=== PATIENT | male | born 1955 | race Caucasian/White ===

== ENCOUNTER 2021-08-02 00:49 | Day surgery (SDC) | payer MEDICARE, SELFPAY ==
[2021-07-23 10:05] VITALS: BMI 23.1
--- NOTE | 2021-08-01 16:11 | WPDANESEPP ---
Anes - Eval Pre Procedure Procedure: Operation Date: 08/02/21 11:00 Proposed Procedures p Colonoscopy - Jovani Atkins MD Date/Time: 08/01/21 16:11 Pre Op Diagnosis: positive FIT test Patient Data Age: 66 Gender: M Height: 1.78 m Weight: 73 kg Allergies Allergy/AdvReac Type Severity Reaction Status Date / Time No Known Allergies Allergy Verified 07/23/21 10:03 Home Medications Medication Instructions Recorded Confirmed Type No Home Medications 06/28/20 06/28/20 History Patient hx anesthesia problems: none Family hx anesthesia problems: none Results Review: All pre-operative results and documents have been reviewed as part of the pre-operative evaluation. FORMERLY [facility] Past Medical History Medical History Bronchitis Second-hand smoke exposure - both parents Chemical/exhaust exposures, welding. Colon cancer screening Encounter for general adult medical examination without abnormal findings Surgical History Surgical History (Updated 08/01/21 @ 16:11 by Laquita Simmons CRNA) History of tonsillectomy Family History Family History Other Family history of arthritis Family history of heart disease in male family member before age 55 Social History Social History Smoking status: Never smoker Alcohol intake: never Substance use: never Substance use type: does not use Living arrangements: with family Spiritual care concerns: No Exam Day of Procedure 08/01/21 16:11
[2021-08-02] MEDS: LACTATED RINGERS 1,000 ML 150 ML IV CONT (09:41)
[2021-08-02 09:43] VITALS: BP 114/74; PULSE 84; RESP 20; TEMP 36.3; O2SAT 100
--- NOTE | 2021-08-02 09:45 | WPDGICN ---
Assessment and Plan Assessment and plan (1) Colon cancer screening: Code(s): Z12.11 - Encounter for screening for malignant neoplasm of colon Status: Acute Assessment and Plan: Patient presents for neoplasia screening colonoscopy. Further recommendations will be given after endoscopy. (2) Occult blood in stools: Code(s): R19.5 - Other fecal abnormalities Status: Acute Assessment and Plan: Patient had positive FIT test. Plan is to for colonoscopy for screening purposes also to look for source of occult blood in stool. GI Consult Note Consult date/time: 08/02/21 09:45 HPI: Abdi Ashraf is a 66 year old male Presents for screening colonoscopy. Patient's current weight appetite bowel movements are normal. He denies abdominal pain. He has had no bleeding. Family history noncontributory. He reports recently having a positive stool for occult blood. Presents today for neoplasia screening. Review of Systems Review of Systems: All systems reviewed & are unremarkable except as noted in HPI and below PMFSH Past Medical History Medical History Bronchitis Second-hand smoke exposure - both parents Chemical/exhaust exposures, welding. Colon cancer screening Encounter for general adult medical examination without abnormal findings Surgical History Surgical History (Updated 08/01/21 @ 16:11 by Laquita Simmons CRNA) History of tonsillectomy Family History Family History Other Family history of arthritis Family history of heart disease in male family member before age 55 Social History Social History Smoking status: Never smoker Alcohol intake: never Substance use: never Substance use type: does not use Living arrangements: with family Spiritual care concerns: No Meds Home Medications and Allergies Home Medications Medication Instructions Recorded Confirmed Type No Home Medications 06/28/20 08/02/21 History Allergies Allergy/AdvReac Type Severity Reaction Status Date / Time No Known Allergies Allergy Verified 08/02/21 09:42 Vital Signs Vital Signs - 24 hr 08/02/21 09:43 Temperature 97.4 F L Pulse Rate 84 Respiratory Rate 20 Blood Pressure 114/74 Pulse Oximetry 100 Exam Narrative: Physical exam reveals patient to be alert. Vital signs stable. HEENT exam is unremarkable. Patient is anicteric. Lungs are clear to auscultation and percussion. Heart is without murmur or extra sounds. Abdominal exam bowel sounds are present soft nontender without hepatosplenomegaly. Digital external rectal exam is normal.
--- NOTE | 2021-08-02 10:00 | WPDANESEFPP ---
Anes - Eval Final PreProcedure Day of Procedure 08/02/21 10:00 Patient weight: normal Heart: regular rate and rhythm Lungs: clear to auscultation Airway: Mallampati scale class II Neurological: alert and oriented Last oral intake: >/= 8 hours ASA classification: II Emergent: no Anesthetic plan: proceed Anesthesia type and monitoring: general GIVS and standard monitoring Results Review: All pre-operative results and documents have been reviewed as part of the pre-operative evaluation. Informed Consent: The patient's anesthetic plan and its attendant risks and benefits were discussed with the patient/family/POA. Questions were solicited and answers provided to the satisfaction of the patient/family/POA.
[2021-08-02 10:31] VITALS: BP 91/59; PULSE 99; RESP 19; O2SAT 96
[2021-08-02 10:41] VITALS: BP 105/67; PULSE 81; RESP 21; O2SAT 98
[2021-08-02 10:51] VITALS: BP 109/76; PULSE 77; RESP 16; O2SAT 100
== END 2021-08-02 10:55 | disposition home or self-care (01) ==
PROVIDERS: PCP Family Medicine; Visit Provider Internal Medicine Gastroenterology
PROC: 0DJD8ZZ Inspection of Lower Intestinal Tract, Via Natural or Artificial Opening Endoscopic (ICD-10-PCS; CPT 45378; principal; 2021-08-02 11:00)
DX: Z12.11 Encounter for screening for malignant neoplasm of colon (principal); R19.5 Other fecal abnormalities; K64.8 Other hemorrhoids
CPT/HCPCS: G0121; J2001; J2704; J7120

== ENCOUNTER 2021-10-14 14:42 | Outpatient (CLI) | payer MEDICARE, SELFPAY ==
--- NOTE | ~2021-10-14 | XR_ITS ---
EXAM: XR foot RT min 3V HISTORY: M79.671 - Pain in right foot HEEL PAIN X 1 WEEK COMPARISON: None available FINDINGS: Normal mineralization. No fracture or dislocation. No lytic or blastic lesion. Plantar ent hesopathy. Suggestion of cortical erosion adjacent to the plantar enthesophyte is likely summation ar tifact. Mild degenerative change at the first MTP joint. Degenerative changes in the fifth metatarsal head. No periosteal change. Soft tissues within normal limits. IMPRESSION: No acute fracture or dislocation. Plantar enthesopathy with adjacent cortical lucency that most likel y represents artifact, in the absence of a history of penetrating injury, overlying skin ulcer, or si gns/symptoms of infection. Reviewed, dictated and finalized at location K. IMPRESSION: No acute fracture or dislocation. Plantar enthesopathy with adjacent cortical l ucency that most likely represents artifact, in the absence of a history of pen etrating injury, overlying skin ulcer, or signs/symptoms of infection.
== END 2021-10-14 14:43 | disposition home or self-care (01) ==
PROVIDERS: PCP Family Medicine; Visit Provider Family Medicine
DX: M77.8 Other enthesopathies, not elsewhere classified (principal)
CPT/HCPCS: 73630

== ENCOUNTER 2021-12-19 20:37 | Emergency (ER) | payer MEDICARE, SELFPAY ==
--- NOTE | 2021-12-19 20:42 | ECG_ITS ---
Measurements Intervals Ronda Rate: 101 P: 31 IL: 140 QRS: 20 QRSD: 83 T: 37 QT: 335 QTc: 435 Interpretive Statements SINUS TACHYCARDIA ABNORMAL RHYTHM ECG NO PREVIOUS ECG AVAILABLE FOR COMPARISON Electronically Signed On 12-20-2021 16:42:43 CDT by Tonio Apple M.D.
--- NOTE | 2021-12-19 20:42 | ED.SYNCOPE ---
HPI - Syncope General Chief Complaint: Syncope Stated Complaint: SYNCOPAL EVENT Time Seen by Provider: 12/19/21 20:37 History of Present Illness HPI narrative: Pt had been outside off and on a lot today and was trying to keep hydrated by drinking water. Pt donated unit of blood this evening and went outside afterwatd and felt lightheaded and had brief syncopal episode. Pt denies CP or palpitations around event. Pt denies TUTTLE. Pt was hypotensive on EMS arrival and now much better after 500ml bolus of IVF. Related Data Allergies Allergy/AdvReac Type Severity Reaction Status Date / Time No Known Allergies Allergy Verified 12/11/21 09:18 Review of Systems Review of Systems: All systems reviewed & are unremarkable except as noted in HPI and below PMFSH Past Medical History Medical History Hyperlipidemia Onychomycosis Surgical History Surgical History History of tonsillectomy Family History Family History Other Family history of arthritis Family history of heart disease in male family member before age 55 Social History Social History Smoking status: Never smoker Alcohol intake: never Substance use: never Substance use type: does not use Spiritual care concerns: No Exam Const: General: healthy appearing and no acute distress Nutritional Appearance: well nourished Orientation/consciousness: patient oriented x3 Limitations: no limitations HENMT: Head: normal to inspection Mouth: Yes Normal oral and palatal mucosa present Eyes: Conjunctivae: conjunctivae normal EOM: EOMs intact bilaterally Neck: Neck: normal visual inspection Chest: Chest palpation & inspection: normal inspection of the chest Resp: Effort & Inspection: normal respiratory effort Auscultation: clear to auscultation bilaterally Cardio: Rate: regular rate Rhythm: regular rhythm Skin: General skin exam: normal color Rashes: no rashes Neuro: General: patient oriented x3, moves all extremities, no meningeal signs and no focal motor deficits Cranial nerves: Yes Nystagmus not present Speech: normal speech Extrem: General: normal to inspection and no clubbing, cyanosis or edema Psych: Mental Status: mental status grossly normal Affect: normal affect Attitude: cooperative Course Vital Signs Vital signs: Vital Signs Temperature 96.9 F L 12/19/21 20:51 Pulse Rate 101 H 12/19/21 20:51 Respiratory Rate 23 H 12/19/21 20:51 Blood Pressure 95/53 L 12/19/21 20:51 Pulse Oximetry 95 12/19/21 20:51 Oxygen Delivery Room Air 12/19/21 20:51 Temperature 96.9 F L 12/19/21 20:51 Pulse Rate 103 H 12/19/21 22:19 Respiratory Rate 20 12/19/21 22:19 Blood Pressure 112/60 12/19/21 22:19 Pulse Oximetry 99 12/19/21 22:19 Oxygen Delivery Room Air 12/19/21 20:51 MDM - Syncope Lab Data Result diagrams: 12/19/21 21:28 12/19/21 21:28 Labs: Lab Results 12/19/21 12/19/21 Range/Units 21:28 21:28 WBC 8.0 (4.5-10.0) K/mm3 RBC 4.03 L (4.6-6.20) M/mm3 Hgb 10.5 L (14.0-18.0) g/dL Hct 33.9 L (42.0-52.0) % MCV 84.1 (80-100) fl MCH 26.1 (26-34) pg MCHC 31.0 L (32-36) g/dl RDW 15.9 H (11.5-14.5) % Plt Count 321 (150-375) k/mm3 MPV 10.4 (7.4-10.4) fl Immature Gran % (Auto) 0.4 (0-0.5) % Neut % (Auto) 73.6 H (45.5-73.1) % Lymph % (Auto) 14.2 L (18.3-44.2) % Josephine % (Auto) 7.9 (2.6-8.5) % Eos % (Auto) 3.2 (0-4.4) % Baso % (Auto) 0.7 (0.2-1.2) % Lymph # (Auto) 1.14 (0.9-3.2) K/mm3 Josephine # (Auto) 0.6 (0.1-0.6) K/mm3 Eos # (Auto) 0.3 (0-0.3) K/mm3 Baso # (Auto) 0.1 (0.0-0.1) K/mm3 Abs Immat Gran (auto) 0.03 (0.00-0.031) K/mm3 Absolute Neuts (auto) 5.9 (1.3-6.7) K/mm3 Absolute Nucl
[2021-12-19 20:51] VITALS: BP 95/53; PULSE 101; RESP 23; TEMP 36.1; O2SAT 95
[2021-12-19] MEDS: SODIUM CHLORIDE 0.9% IV 1,000 ML 999 ML IV CONT (21:32)
[2021-12-19 21:42] LABS: Basophils Absolute Auto 0.1 K/mm3 (0.0-0.1); Basophils Percent Auto 0.7 % (0.2-1.2); Eosinophils Absolute Auto 0.3 K/mm3 (0-0.3); Eosinophils Percent Auto 3.2 % (0-4.4); Hematocrit 33.9 % (42.0-52.0); Hemoglobin 10.5 g/dL (14.0-18.0); Immature Granulocyte Absolute 0.03 K/mm3 (0.00-0.031); Immature Granulocyte Percent A 0.4 % (0-0.5); Lymphocytes Absolute Auto 1.14 K/mm3 (0.9-3.2); Lymphocytes Percent Auto 14.2 % (18.3-44.2); Mean Corpuscular Hemoglobin 26.1 pg (26-34); Mean Corpuscular Volume 84.1 fl (80-100); Mean Platelet Volume 10.4 fl (7.4-10.4); Monocytes Absolute Auto 0.6 K/mm3 (0.1-0.6); Monocytes Percent Auto 7.9 % (2.6-8.5); Neutrophils Absolute Auto 5.9 K/mm3 (1.3-6.7); Neutrophils Percent Auto 73.6 % (45.5-73.1); Platelet Count Result 321 k/mm3 (150-375); Red Blood Count 4.03 M/mm3 (4.6-6.20); Red Cell Distribution Width 15.9 % (11.5-14.5)
[2021-12-19 21:52] LABS: Alanine Aminotransferase 30 U/L (6-50); Albumin Level 3.4 g/dL (3.5-5.1); Alkaline Phosphatase 108 U/L (38-126); Anion Gap 7 mmol/L (8-16); Aspartate Amino Transferase 27 U/L (17-59); Bilirubin,Total 0.1 mg/dL (0.2-1.3); Blood Urea Nitrogen 24 mg/dL (9-20); Calcium 8.3 mg/dL (8.4-10.2); Carbon Dioxide 22 mmol/L (22-30); Chloride 108 mmol/L (98-107); Estimated CRCL calculation 64 ml/min; Estimated Glomerular Filt Rate > 60; Glucose 204 mg/dL (65-110); Magnesium 2.1 mg/dL (1.6-2.3); Potassium 3.5 mmol/L (3.4-5.0); Sodium 137 mmol/L (137-145)
[2021-12-19 22:11] VITALS: BP 120/58; PULSE 94
[2021-12-19 22:13] VITALS: BP 96/56; PULSE 91
[2021-12-19 22:16] VITALS: BP 112/60; PULSE 104
[2021-12-19 22:19] VITALS: BP 112/60; PULSE 103; RESP 20; O2SAT 99
--- NOTE | 2021-12-26 01:46 | PC.NURSE ---
this nurse hung iv fluids for nurse yosleyn ruano. this nurse was not present when fluids stopped on 12/20/21
== END 2021-12-19 22:29 | disposition home or self-care (01) ==
PROVIDERS: Emergency Provider Emergency Medicine; PCP Family Medicine
DX: R55 Syncope and collapse (principal); E78.5 Hyperlipidemia, unspecified; R00.0 Tachycardia, unspecified
CPT/HCPCS: 36415; 80053; 83735; 85025; 93005; 96360; 99284; J7030

== ENCOUNTER 2023-01-12 12:17 | Outpatient (RCR) | payer MEDICARE, SELFPAY ==
--- NOTE | 2023-01-12 14:42 | OPREHPOC ---
Outpatient Therapy Plan of Care This is a Multidisciplinary Plan of Care that may contain components documented by all disciplines (PT, OT, and ST.) PT Problem 1 PT Problem #1 Knowledge Deficit PT Goal 1 Goal Pt to be IND with issued HEP Target Visit 4 PT Problem 2 PT Problem #2 Pain PT Goal 1 Goal Pt to report pain no greater than 3/10 in the last week Target Visit 4 PT Goal 2 Goal Pt to report 75% improvement in overall symptoms. Target Visit 4 PT Problem 3 PT Problem #3 Impaired Functional Mobil PT Goal 1 Goal Pt to demonstrate floor to stand transfer without UE support Target Visit 4 PT Goal 2 Goal Pt to demonstrate neutral knee alignment during a functional squat Target Visit 4
--- NOTE | 2023-01-12 14:42 | PTOPEVAL1 ---
Assessment and note entered by Clare Knight, PT, DPT Evaluation Information Assessment Status Evaluation Diagnosis L knee pain Onset chronic Subjective Information Pt states his knee will lock up, and it will get stuck in a flexed position. He states he has had knee pain for years but this new locking symptoms has been going on for a couple of weeks. He got an injection from an orthopedic doctor today. He states he can sit no longer than 15 mins before the knee and it is really painful to get it to unlock. Pt states he is a really active rivas. Reported Pain Level Pain Score 0: Self Report Assessment PT Clinical Summary Abdi presents to therapy today for his intial evaluation with a diagnosis of L knee pain. Today he demonstrates good knee strength through MMT but poor knee stability through a functional movement assessment. He demonstrates hip abduction weakness as well. He has normal hip and knee ROM. Skilled physical therapy services are indicated to increase stability, decrease pain, and to return to PLOF. Plan of Care Interventions Electrical Stimulation,Gait Training,Manual Therapy,Neuro Re-education,Patient/Caregiver Educati,Therapeutic Activities,Therapeutic Exercise PT Services Indicated Yes Treatment Frequency and 1x/wk for 4 wks Duration These treatments will address the objective and functional deficits as defined above. The patient will be advanced safely and appropriately in order for the patient to progress towards his/her prior level of function. Additional exercises will be introduced and as well as a comprehensive home exercise program upon discharge, if needed, ?to ensure carryover of functional gains achieved in the clinic. This treatment plan has been reviewed and agreement upon by the patient.
--- NOTE | 2023-01-23 10:34 | PCPTNOTE ---
Patient no showed to appointment this date. Called and spoke with patient who states he just got back into town. Patient was reminded of next appointment on 01/30/23.
--- NOTE | 2023-01-28 13:42 | PTOPDC ---
Assessment and note entered by Clare Knight, PT, DPT Evaluation Information Assessment Status Discharge - Pt Not Present Diagnosis L knee pain Onset chronic Subjective Information Pt called today to cancel his appointment for tomorrow and the rest of his appointments. He states he is in too much pain to come to therapy and does not want to continue. Assessment PT Clinical Summary Pt was evaluated on 12/13/22 and has not attended a treatment since. He will be discharged at this time her request.
== END 2023-01-28 14:24 | disposition home or self-care (01) ==
LOC: ANHGOSHPT 12:17
PROVIDERS: PCP Family Medicine; Visit Provider Family Medicine
DX: M25.562 Pain in left knee (principal); G89.29 Other chronic pain
CPT/HCPCS: 97110; 97161; 99199